=== PATIENT | female | born 1965 | race Caucasian/White ===

== ENCOUNTER 2017-02-14 15:37 | Emergency (ER) | payer OTHER ==
[~2017-02-14] VITALS: Ht 152.4 cm; Wt 56.7 kg
[~2017-02-14 15:37] MED LIST: ASCO-96 PO; HYDR-3240 PO; IBUP-1223 PO; LORA-446 PO; MULT-717 PO; ZOLP10TA PO
[2017-02-14 17:29] LABS: BASOPHILS # (AUTO) 0.03 x10^3/uL (0-0.1); BASOPHILS % (AUTO) 0 % (0-1); EOSINOPHILS % (AUTO) 3 % (1-7); LYMPHOCYTES # (AUTO) 1.91 x10^3/uL (1-3.4); LYMPHOCYTES % (AUTO) 23 % (22-44); MD NO; MEAN CORPUSCULAR HEMOGLOBIN 32.8 pg (27.0-34.8); MEAN CORPUSCULAR HGB CONC 34.3 g/dL (32.4-35.8); MEAN CORPUSCULAR VOLUME 95.7 fL (80-100); MEAN PLATELET VOLUME 8.5 fL (7.4-10.4); MONOCYTES # (AUTO) 0.49 x10^3/uL (0.2-0.8); MONOCYTES % (AUTO) 6 % (2-9); NEUTROPHILS # (AUTO) 5.55 x10^3/uL (1.8-6.8); NEUTROPHILS % (AUTO) 68 % (42-75); PLATELET COUNT 242 x10^3/uL (130-400); RED BLOOD COUNT 4.44 x10^6/uL (3.82-5.3); RED CELL DISTRIBUTION WIDTH 12.8 % (9.6-15.2)
[2017-02-14 17:39] LABS: ALBUMIN 4.4 g/dL (3.4-5.0); ANION GAP 7 mmol/L (5-15); CALCIUM 9.1 mg/dL (8.5-10.1); CHLORIDE 107 mmol/L (98-107); CREATININE 0.93 mg/dL (0.55-1.02)
[2017-02-14 17:43] LABS: TROPONIN I < 0.015 ng/mL (0.000-0.045)
[2017-02-14] MEDS ORDERED: LORazepam 1MG TABLET ONE (17:43)
[2017-02-14] MEDS ORDERED: LORazepam 1MG TABLET PO ONE (18:00)
[2017-02-14] MEDS ORDERED: ASPIRIN 325 MG TABLET ONE (18:08)
[2017-02-14] MEDS ORDERED: HYDROmorphone 2 MG/ML, 1ML ONE (18:22)
[2017-02-14] MEDS ORDERED: HYDROmorphone 1 MG/ML, 1ML IM ONE (18:30)
[2017-02-14 19:33] VITALS: BP 103/72
== END 2017-02-14 19:35 | disposition home or self-care (01) ==
LOC: ED 18:26
DX: M54.6 Pain in thoracic spine (principal); G89.29 Other chronic pain
CPT/HCPCS: 36415; 71010; 80048; 82040; 84484; 85025; 85379; 93005; 96372; 99285; J1170

== ENCOUNTER → 2017-09-04 | Outpatient (CLI) | payer OTHER | END | disposition home or self-care (01) | LOC: CFH 13:54 | PROVIDERS: ATTEND Internal Medicine Cardiovascular Disease | DX: R00.2 Palpitations (principal); Z82.49 Family history of ischemic heart disease and other diseases of the circulatory system | CPT/HCPCS: 93306 ==

== ENCOUNTER → 2018-07-02 | Outpatient (CLI) | payer OTHER | END | disposition home or self-care (01) | LOC: CFH 07:23 | PROVIDERS: ATTEND Obstetrics & Gynecology Gynecology | DX: Z12.31 Encounter for screening mammogram for malignant neoplasm of breast (principal) | CPT/HCPCS: 77067 ==

== ENCOUNTER 2019-07-27 12:58 | Outpatient (CLI) | payer OTHER | END 2019-07-27 23:59 | disposition home or self-care (01) | LOC: CFH 12:58 | PROVIDERS: ATTEND Obstetrics & Gynecology Gynecology | DX: Z12.31 Encounter for screening mammogram for malignant neoplasm of breast (principal) | CPT/HCPCS: 77067 ==

== ENCOUNTER 2020-03-24 19:33 | Emergency (ER) | payer OTHER ==
[~2020-03-24] VITALS: Ht 162.6 cm; Wt 58.0 kg
[~2020-03-24 19:33] MED LIST changes: +HYDR-1067 PO; -HYDR-3240 PO
[2020-03-24 19:39] VITALS: BP 135/83
[2020-03-24] MEDS ORDERED: LORazepam 1MG TABLET ONE (19:51)
[2020-03-24] MEDS ORDERED: LORazepam 1MG TABLET PO ONE (20:00)
--- NOTE | 2020-03-24 20:16 | NUR ---
PT BIBA. PER EMS PT HAD AN ANXIETY ATTACK WHEN COMING TO WORK [employer]. PT HAS HX OF ANXIETY. PT RESTING IN [facility], MONITORING IN PLACE, EKG DONE, NADN AT THIS TIME, PT MEDICATED PER EMAR, [place].
== END 2020-03-24 20:29 | disposition home or self-care (01) ==
LOC: ED 20:08
DX: F41.1 Generalized anxiety disorder (principal); F32.9 Major depressive disorder, single episode, unspecified; R94.31 Abnormal electrocardiogram [ECG] [EKG]
CPT/HCPCS: 93005; 99283

== ENCOUNTER 2020-07-27 14:09 | Outpatient (CLI) | payer OTHER ==
[~2020-07-27 14:09] MED LIST changes: -HYDR-1067 PO; +HYDR-2214 PO
== END 2020-07-27 23:59 | disposition home or self-care (01) ==
LOC: CFH 14:09
PROVIDERS: ATTEND Obstetrics & Gynecology Gynecology
DX: Z12.31 Encounter for screening mammogram for malignant neoplasm of breast (principal)
CPT/HCPCS: 77063; 77067